=== PATIENT | female | born 1965 | race Caucasian/White ===

== ENCOUNTER 2017-09-16 13:23 | Emergency (ER) | payer OTHER ==
[~2017-09-16] VITALS: Ht 177.8 cm; Wt 89.7 kg
[2017-09-16 13:37] VITALS: BP 122/84
[2017-09-16] MEDS ORDERED: DIPH,PERTUSS(ACELL),TET VAC/PF 0.5 ML IM-VACC ONE ×2 (14:08→14:30)
[2017-09-16 14:29] LABS: BASOPHILS # (AUTO) 0.04 x10^3/uL (0-0.1); BASOPHILS % (AUTO) 1 % (0-1); EOSINOPHILS # (AUTO) 0.35 x10^3/uL (0-0.4); EOSINOPHILS % (AUTO) 5 % (1-7); LYMPHOCYTES # (AUTO) 2.47 x10^3/uL (1-3.4); LYMPHOCYTES % (AUTO) 32 % (22-44); MD NO; MEAN CORPUSCULAR HEMOGLOBIN 30.3 pg (27.0-34.8); MEAN CORPUSCULAR HGB CONC 34.3 g/dL (32.4-35.8); MEAN CORPUSCULAR VOLUME 88.1 fL (80-100); MEAN PLATELET VOLUME 7.7 fL (7.4-10.4); MONOCYTES % (AUTO) 5 % (2-9); NEUTROPHILS # (AUTO) 4.39 x10^3/uL (1.8-6.8); NEUTROPHILS % (AUTO) 57 % (42-75); PLATELET COUNT 299 x10^3/uL (130-400); RED BLOOD COUNT 4.69 x10^6/uL (3.82-5.3); RED CELL DISTRIBUTION WIDTH 13.5 % (9.6-15.2)
== END 2017-09-16 15:29 | disposition home or self-care (01) ==
LOC: ED 14:37
DX: S61.031A Puncture wound without foreign body of right thumb without damage to nail, initial encounter (principal); X58.XXXA Exposure to other specified factors, initial encounter; Y93.89 Activity, other specified; Y92.89 Other specified places as the place of occurrence of the external cause; Y99.9 Unspecified external cause status
CPT/HCPCS: 36415; 84460; 85025; 86703; 86803; 87340; 87899; 90471; 90715; G0435